=== PATIENT | male | born 1960 | race Caucasian/White ===

== ENCOUNTER → 2016-02-29 | Outpatient (CLI) | payer OTHER ==
--- NOTE | 2016-02-29 09:06 | US ---
EXAMINATION TYPE: US liver DATE OF EXAM: 02/29/2016 8:48 AM COMPARISON: NONE CLINICAL HISTORY: US. Elevated liver enzymes. EXAM MEASUREMENTS: Liver Length: 17.7 cm Gallbladder Wall: 0.3 cm CBD: 0.3 cm Right Kidney: 10.3 x 3.6 x 5.1 cm ANATOMY: TECHNOLOGIST IMPRESSION: Some areas obscured by bowel gas; portions of RUQ visualized appear within normal limits. Pancreas: Obscured by bowel gas, portions visualized appear wnl Liver: measures upper limits of normal, appears wnl Gallbladder: appears wnl, junctional fold noted Evidence for sonographic Jefferson's sign: no CBD: appears wnl Right Kidney: appears wnl IMPRESSION: Slightly limited examination on bone no distinct abnormality is seen at this time. Normal Values: Liver Length: < 16cm wnl, 17-18cm upper limits, >18cm enlarged Renal Length = 9 - 12cm GB Wall: < 0.3cm CBD: < 0.6cm or < 1.0cm post cholecystectomy
== END | disposition home or self-care (01) ==
LOC: RADUSWWP 08:16
PROVIDERS: ATTEND Family Medicine
DX: R74.8 Abnormal levels of other serum enzymes (principal)
CPT/HCPCS: 76705

== ENCOUNTER → 2016-09-02 | Outpatient (CLI) | payer OTHER ==
--- NOTE | 2016-09-02 15:57 | US ---
EXAMINATION TYPE: US kidneys/renal and bladder DATE OF EXAM: 09/02/2016 COMPARISON: US CLINICAL HISTORY: 56-year-old male N18.3 Chronic kidney disease stage 3. TECHNIQUE: Multiple sonographic images of the kidneys and bladder are obtained. FINDINGS: EXAM MEASUREMENTS: Right Kidney: 11.3 x 4.3 x 4.7 cm Left Kidney: 8.1 x 4.2 x 4.3 cm No hydronephrosis on either side. No gross abnormality of the urine distended bladder. Both ureteral jets are visualized. IMPRESSION: No hydronephrosis.
== END | disposition home or self-care (01) ==
LOC: RADUSWWP 15:21
PROVIDERS: ATTEND Family Medicine
DX: N18.3 Chronic kidney disease, stage 3 (moderate) (principal)
CPT/HCPCS: 76770

== ENCOUNTER 2017-11-16 10:24 | Day surgery (SDC) | payer OTHER ==
[2017-11-15 11:57] VITALS: BMI 18.1
[~2017-11-16 10:24] MED LIST: LACTATED RINGERS 1,000 ML IV SCH
[2017-11-16 11:13] VITALS: RESP 16; TEMP 97.6
[2017-11-16] MEDS ORDERED: LIDOCAINE 1% 20 ML VIAL (10MG/ML) FOR IV START INTRADERMA ONE (11:19)
[2017-11-16] MEDS ORDERED: LIDOCAINE 1% INJ 10MG/ML (20 ML MDV) ONE (11:57)
[2017-11-16] MEDS ORDERED: PROPOFOL 10 MG/ML 20 ML VIAL IV ONE (11:57)
--- NOTE | 2017-11-16 12:33 | P.PCN ---
Date of Procedure: 11/16/17 Procedure(s) Performed: Procedure: Total colonoscopy. Preoperative diagnosis: Screening for neoplasia. Postoperative diagnosis: Exam within normal limits. Preparation: HalfLytely prep. Sedation: Was provided by anesthesia. Brief clinical history: The patient is a 57-year-old male who is scheduled for this evaluation for screening for neoplasia age being his risk factor. There is no family history of colon cancer. The patient has no abdominal complaints, bleeding or anemia. This would be his first colonoscopy. Procedure: With the patient on his left lateral decubitus position and after informed consent and adequate sedation, the perianal area was inspected and it did not show any fissures or fistulas. There were no masses felt on digital rectal examination. The Olympus CFQ 160L video colonoscope was then inserted in the rectum in the usual fashion and advanced to the cecum. The mucosa appeared healthy. No polyps or tumors were seen or any obvious diverticular disease or other pathology. I retroflexed the endoscope in the rectum before the endoscope was withdrawn. The patient tolerated the procedure well. Plan: The patient was reassured. He will follow up with you as planned and I recommended repeat exam in 10 years.
[2017-11-16 13:26] VITALS: BP 151/85; PULSE 59
== END 2017-11-16 13:31 | disposition home or self-care (01) ==
LOC: ORWHC2ENDO 10:24
DX: Z12.11 Encounter for screening for malignant neoplasm of colon (principal); J44.9 Chronic obstructive pulmonary disease, unspecified; I10 Essential (primary) hypertension; F41.9 Anxiety disorder, unspecified; F17.200 Nicotine dependence, unspecified, uncomplicated; Z79.51 Long term (current) use of inhaled steroids; Z79.899 Other long term (current) drug therapy
CPT/HCPCS: J2001; J2704; G0121